=== PATIENT | female | born 1930 | race Caucasian/White ===

== ENCOUNTER 2019-07-11 07:22 | Emergency (ER) | payer MEDICARE ==
[~2019-07-11] VITALS: Ht 157.5 cm; Wt 63.5 kg
[2019-07-11] MEDS ORDERED: MULTI VITAMIN1 EACH PO (07:46)
[2019-07-11] MEDS ORDERED: MELATONIN1 MG PO (07:47)
== END 2019-07-11 09:18 | disposition home or self-care (01) ==
LOC: ED 07:22
DX: S13.4XXA Sprain of ligaments of cervical spine, initial encounter (principal); W10.9XXA Fall (on) (from) unspecified stairs and steps, initial encounter
CPT/HCPCS: 72040; 99283-25